=== PATIENT | female | born 1950 | race Caucasian/White ===

== ENCOUNTER 2021-09-26 14:54 | Inpatient (IN) | payer MEDICARE, OTHER ==
[~2021-09-26] VITALS: Ht 152.4 cm; Wt 59.5 kg
[2021-09-26 15:34] LABS: BASOPHILS % (AUTO) 0.8 % (0.0-2.0); EOSINOPHILS % (AUTO) 0.8 % (1.0-6.0); HEMATOCRIT 34.4 % (36-46); HEMOGLOBIN 11.5 g/dL (12.0-16.0); LYMPHOCYTES # (AUTO) 1.2 K/uL (1.0-4.8); LYMPHOCYTES % (AUTO) 19.5 % (22.0-44.0); MEAN CORPUSCULAR HEMOGLOBIN 28.8 pg (26.0-34.0); MEAN CORPUSCULAR HGB CONC 33.6 G/dL (31.0-37.0); MEAN CORPUSCULAR VOLUME 86 fL (80-100); MONOCYTES # (AUTO) 0.3 K/uL (0.1-1.0); MONOCYTES % (AUTO) 5.3 % (2.0-9.0); NEUTROPHILS # (AUTO) 4.6 K/uL (1.8-7.7); NEUTROPHILS % (AUTO) 73.6 % (40.0-70.0); PLATELET COUNT (AUTO) 239 K/uL (150-450); RED BLOOD CELL COUNT(AUTO) 4.02 MIL/uL (4.00-5.20); RED CELL DISTRIBUTION WIDTH 12.7 % (11.5-14.5)
[2021-09-26 15:42] LABS: CALCIUM, TOTAL 8.1 mg/dL (8.8-10.5); CREATININE 3.49 mg/dL (0.60-1.30); POTASSIUM 4.3 mmol/L (3.5-5.1)
[2021-09-26 15:47] LABS: ALBUMIN 1.9 g/dL (3.4-5.0); BILIRUBIN,TOTAL 0.3 mg/dL (0.1-1.0); PROTHROMBIN TIME 10.6 SEC (9.4-11.6); TOTAL PROTEIN, SERUM 5.5 g/dL (6.4-8.2)
[2021-09-26 15:53] LABS: APPEARANCE,URINE HAZY (CLEAR); BILIRUBIN,URINE NEGATIVE (NEGATIVE); GLUCOSE, URINE (UA) TRACE mg/dL (NEGATIVE); KETONES,URINE NEGATIVE (NEGATIVE); LEUKOCYTE ESTERASE ,URINE NEGATIVE (NEGATIVE); NITRATE,URINE NEGATIVE (NEGATIVE); OCCULT BLOOD,URINE TRACE (NEGATIVE); PH,URINE 6.5 (5.0-8.0); PROTEIN,URINE 300-600,SEE CONFIRM mg/dL (NEGATIVE); SPECIFIC GRAVITIY, URINE 1.013 (1.003-1.030); UROBILINOGEN,URINE <=1.0 mg/dL (<=1.0)
[2021-09-26 15:57] LABS: LACTIC ACID 1.1 mmol/L (0.4-2.0)
[2021-09-26 16:01] LABS: BACTERIA,URINE Few /HPF (None Seen); HYALINE CASTS, URINE 0-2 /LPF (None Seen); SQUAMOUS EPITHELIAL CELL,UR Moderate /LPF (None Seen); SULFOSALICYLIC ACID,URINE 3+ (Negative)
[2021-09-26 18:12] LABS: COVID AG,FIA SOURCE NASAL SWAB
[2021-09-26] MEDS ORDERED: FUROSEMIDE 40 MG/4 ML VIAL IVP ONE (18:45)
[2021-09-26] MEDS ORDERED: ASPIRIN 81 MG CHEWABLE TABLET PO ONE (18:45)
[2021-09-26] MEDS ORDERED: ONDANSETRON HCL 4 MG/2 ML VIAL IVP PRN (19:00)
[2021-09-26] MEDS ORDERED: ACETAMINOPHEN 325 MG TABLET PO PRN (19:00)
[2021-09-26 19:18] LABS: CREATININE,URINE RANDOM 78.7 mg/dL (30.0-125.0)
[2021-09-26] MEDS ORDERED: AmLODIPine BESYLATE 5 MG TABLET PO SCH (21:00)
[2021-09-26 21:30] VITALS: BP 174/71
[2021-09-26] MEDS ORDERED: SODIUM CHLORIDE 0.9% 250 ML IV ONE (23:15)
[2021-09-26] MEDS: HEPARIN SODIUM,PORCINE 5,000 UNITS/ML VIAL SQ SCH (23:50)
[2021-09-27] VITALS (7 sets, daily range): BP systolic 138–170; BP diastolic 63–79
[2021-09-27] MEDS ORDERED: PNEUMOCOCCAL VACCINE POLYVALENT 0.5 ML VIAL [PPSV23] IM. ONE (04:30)
[2021-09-27 05:56] LABS: GLUCOMETER DEV NAME(LOC) 5S.2B; GLUCOSE,POINT OF CARE 77 MG/DL (70-110)
[2021-09-27 08:07] LABS: BASOPHILS % (AUTO) 0.9 % (0.0-2.0); EOSINOPHILS % (AUTO) 2.8 % (1.0-6.0); HEMATOCRIT 29.8 % (36-46); HEMOGLOBIN 10.4 g/dL (12.0-16.0); LYMPHOCYTES # (AUTO) 1.6 K/uL (1.0-4.8); LYMPHOCYTES % (AUTO) 34.6 % (22.0-44.0); MEAN CORPUSCULAR HEMOGLOBIN 29.7 pg (26.0-34.0); MEAN CORPUSCULAR HGB CONC 34.8 G/dL (31.0-37.0); MEAN CORPUSCULAR VOLUME 85 fL (80-100); MONOCYTES # (AUTO) 0.4 K/uL (0.1-1.0); NEUTROPHILS # (AUTO) 2.4 K/uL (1.8-7.7); NEUTROPHILS % (AUTO) 53.7 % (40.0-70.0); PLATELET COUNT (AUTO) 184 K/uL (150-450); RED CELL DISTRIBUTION WIDTH 12.5 % (11.5-14.5)
[2021-09-27] MEDS: HEPARIN SODIUM,PORCINE 5,000 UNITS/ML VIAL SQ SCH ×3 (08:25→23:30)
[2021-09-27 08:32] LABS: CALCIUM, TOTAL 7.4 mg/dL (8.8-10.5); CREATININE 3.5 mg/dL (0.60-1.30); MAGNESIUM 1.7 mg/dL (1.80-2.40); POTASSIUM 3.6 mmol/L (3.5-5.1)
[2021-09-27 11:34] LABS: PHOSPHORUS 4.2 mg/dL (2.5-4.9)
[2021-09-27] MEDS ORDERED: AmLODIPine BESYLATE 5 MG TABLET PO SCH (11:45)
[2021-09-27] MEDS ORDERED: INSULIN LISPRO 100 UNITS/ML SQ PRN (11:45)
[2021-09-27] MEDS ORDERED: DEXTROSE 50%-WATER 25 GM/50 ML SYRINGE IVP PRN (11:45)
[2021-09-27] MEDS ORDERED: SODIUM CHLORIDE 0.9% 1,000 ML IV ONE (11:45)
[2021-09-27] MEDS ORDERED: GLUCAGON,HUMAN RECOMBINANT 1 MG VIAL IM PRN (11:45)
[2021-09-27 12:01] LABS: GLUCOMETER DEV NAME(LOC) 5S.2B; GLUCOSE,POINT OF CARE 114 MG/DL (70-110)
[2021-09-27] MEDS: INSULIN LISPRO 100 UNITS/ML SQ PRN (20:18)
[2021-09-27] MEDS ORDERED: ATORVASTATIN CALCIUM 20 MG TABLET PO SCH (21:00)
[2021-09-27 21:01] LABS: GLUCOMETER DEV NAME(LOC) 5N.3; GLUCOSE,POINT OF CARE 100 MG/DL (70-110)
[2021-09-28 04:30] VITALS: BP 156/70
[2021-09-28 05:01] LABS: GLUCOMETER DEV NAME(LOC) 5N.1C; GLUCOSE,POINT OF CARE 79 MG/DL (70-110)
[2021-09-28] MEDS: INSULIN LISPRO 100 UNITS/ML SQ PRN (05:52)
[2021-09-28 05:54] LABS: TPROTEIN TIMED,URINE 333 mg/dL
[2021-09-28 05:55] LABS: COLLECTION TIME,URINE 24 HR; TPROTEIN URINE, 24HRS COLL 4829 mg/24Hr (0-165)
[2021-09-28 05:56] LABS: GLUCOMETER DEV NAME(LOC) 5S.2B; GLUCOSE,POINT OF CARE 123 MG/DL (70-110)
[2021-09-28 07:46] VITALS: BP 164/77
[2021-09-28 08:02] LABS: CALCIUM, TOTAL 7.4 mg/dL (8.8-10.5); CREATININE 3.27 mg/dL (0.60-1.30); POTASSIUM 3.5 mmol/L (3.5-5.1)
[2021-09-28] MEDS: HEPARIN SODIUM,PORCINE 5,000 UNITS/ML VIAL SQ SCH (08:10)
[2021-09-28] MEDS ORDERED: AmLODIPine BESYLATE 10 MG TABLET PO SCH (09:00)
[2021-09-28 09:21] LABS: GLUCOMETER DEV NAME(LOC) 5S.1B; GLUCOSE,POINT OF CARE 108 MG/DL (70-110)
[2021-09-28 11:05] VITALS: BP 140/57
[2021-09-28] MEDS ORDERED: AMLO-258 PO (11:40)
[2021-09-28 13:51] LABS: GLUCOMETER DEV NAME(LOC) 5S.2B; GLUCOSE,POINT OF CARE 134 MG/DL (70-110)
== END 2021-09-28 15:25 | disposition home or self-care (01) | DRG 683 ==
LOC: EMS 15:04 → 5S 18:47
PROVIDERS: ADMIT Internal Medicine; ATTEND Internal Medicine
DX: N17.9 Acute kidney failure, unspecified (principal); I13.0 Hypertensive heart and chronic kidney disease with heart failure and stage 1 through stage 4 chronic kidney disease, or unspecified chronic kidney disease; E88.09 Other disorders of plasma-protein metabolism, not elsewhere classified; D64.9 Anemia, unspecified; E11.22 Type 2 diabetes mellitus with diabetic chronic kidney disease; E78.5 Hyperlipidemia, unspecified; I50.9 Heart failure, unspecified; R30.0 Dysuria; N18.4 Chronic kidney disease, stage 4 (severe); Z20.822 Contact with and (suspected) exposure to COVID-19; Z79.899 Other long term (current) drug therapy
CPT/HCPCS: 71045; 74176; 76705; 76770; 80048; 80053; 81001; 81002; 81050; 82570; 82962; 83605; 83735; 83880; 84100; 84156; 84300; 84484; 85025; 85610; 85730; 93005; 93306; 99285; J1644; J1940; J2405; J7030; J7050; 36415-L1; 36415-TC

== ENCOUNTER 2022-04-30 12:23 | Inpatient (IN) | payer MEDICARE, OTHER ==
[~2022-04-30] VITALS: Ht 154.9 cm; Wt 56.4 kg
[~2022-04-30 12:23] MED LIST: AMLO-258 PO; FURO40 PO; LOSA-381 PO
[2022-04-30 13:22] LABS: COVID AG,FIA SOURCE NASOPHARYNGEAL
[2022-04-30 13:25] LABS: BASOPHILS % (AUTO) 1.3 % (0.0-2.0); EOSINOPHILS % (AUTO) 5.6 % (1.0-6.0); HEMATOCRIT 31.4 % (36-46); HEMOGLOBIN 10.8 g/dL (12.0-16.0); LYMPHOCYTES # (AUTO) 1.5 K/uL (1.0-4.8); MEAN CORPUSCULAR HEMOGLOBIN 31.3 pg (26.0-34.0); MEAN CORPUSCULAR HGB CONC 34.4 G/dL (31.0-37.0); MEAN CORPUSCULAR VOLUME 91 fL (80-100); MONOCYTES # (AUTO) 0.3 K/uL (0.1-1.0); MONOCYTES % (AUTO) 5.1 % (2.0-9.0); NEUTROPHILS # (AUTO) 4.4 K/uL (1.8-7.7); PLATELET COUNT (AUTO) 213 K/uL (150-450); RED BLOOD CELL COUNT(AUTO) 3.45 MIL/uL (4.00-5.20); RED CELL DISTRIBUTION WIDTH 13.7 % (11.5-14.5)
[2022-04-30 13:39] LABS: LIPASE 128 U/L (73-393)
[2022-04-30 13:50] LABS: LACTIC ACID 2.2 mmol/L (0.4-2.0)
[2022-04-30 13:52] LABS: B-TYPE NATRIURETIC PEPTIDE 174 pg/mL (0-100)
[2022-04-30] MEDS ORDERED: LABE100T51 PO (14:51)
[2022-04-30] MEDS ORDERED: FURO80TA87 PO (14:52)
[2022-04-30] MEDS ORDERED: AMLO2.5T29 PO (14:53)
[2022-04-30] MEDS ORDERED: NIFE90TA65 PO (14:54)
[2022-04-30] MEDS ORDERED: LOSA-382 PO (14:55)
[2022-04-30] MEDS ORDERED: ATOR40TA71 PO (15:22)
[2022-04-30] MEDS ORDERED: INSU100I40 SQ (15:22)
[2022-04-30] MEDS ORDERED: AMLO5TAB66 PO (15:22)
[2022-04-30] MEDS ORDERED: LEVOFLOXACIN 500 MG/D5% WATER 100 ML IV ONE (15:30)
[2022-04-30] MEDS ORDERED: PIPERACILLIN/TAZO 3.375 GM/D5W 50 ML IV ONE (15:30)
[2022-04-30 15:44] LABS: CALCIUM, TOTAL 8.8 mg/dL (8.8-10.5); CREATININE 5.5 mg/dL (0.60-1.30); POTASSIUM 4.8 mmol/L (3.5-5.1)
[2022-04-30] MEDS: ASPIRIN 81 MG DR TABLET PO SCH (17:24)
[2022-04-30] MEDS ORDERED: DEXTROSE 50%-WATER 25 GM/50 ML SYRINGE IVP PRN (20:00)
[2022-04-30] MEDS ORDERED: MORPHINE SULFATE 2 MG/ML SYRINGE IVP PRN (20:15)
[2022-04-30] MEDS ORDERED: HYDROCODONE/ACETAMINOPHEN 5-325 MG TABLET PO PRN (20:15)
[2022-04-30] MEDS ORDERED: MAGNESIUM HYDROXIDE SUSPENSION 30 ML UDCUP PO PRN (20:15)
[2022-04-30] MEDS ORDERED: ONDANSETRON HCL 4 MG/2 ML VIAL IVP PRN (20:15)
[2022-04-30] MEDS ORDERED: ACETAMINOPHEN 325 MG TABLET PO PRN (20:15)
[2022-04-30] MEDS ORDERED: BISACODYL 10 MG RECTAL RECTAL SUPPOSITORY PR PRN (20:15)
[2022-04-30] MEDS ORDERED: *CLINICAL-LEVOFLOXACIN IVPB DOSING CLINICAL ONE (20:30)
[2022-04-30 21:00] VITALS: BP 182/73
[2022-04-30] MEDS: DOCUSATE SODIUM 100 MG CAPSULE PO SCH (21:39)
[2022-04-30] MEDS: HydrALAZINE HCL 20 MG/ML VIAL IVP PRN (21:39)
[2022-04-30] MEDS: INSULIN LISPRO 100 UNITS/ML SQ PRN (21:57)
[2022-04-30] MEDS: ZOLPIDEM TARTRATE 5 MG TABLET PO PRN (22:32)
[2022-05-01] VITALS (15 sets, daily range): BP systolic 133–221; BP diastolic 60–80
[2022-05-01] MEDS: HEPARIN SODIUM,PORCINE 5,000 UNITS/ML VIAL SQ SCH ×4 (00:54→18:05)
[2022-05-01 05:11] LABS: GLUCOMETER DEV NAME(LOC) 5S.2B; GLUCOSE,POINT OF CARE 108 MG/DL (70-110)
[2022-05-01 05:58] LABS: BASOPHILS % (AUTO) 0.5 % (0.0-2.0); EOSINOPHILS % (AUTO) 9.5 % (1.0-6.0); HEMOGLOBIN 10.6 g/dL (12.0-16.0); LYMPHOCYTES % (AUTO) 14.9 % (22.0-44.0); MEAN CORPUSCULAR HEMOGLOBIN 31.7 pg (26.0-34.0); MEAN CORPUSCULAR HGB CONC 35.4 G/dL (31.0-37.0); MEAN CORPUSCULAR VOLUME 90 fL (80-100); MONOCYTES # (AUTO) 0.3 K/uL (0.1-1.0); MONOCYTES % (AUTO) 4.5 % (2.0-9.0); NEUTROPHILS # (AUTO) 4.9 K/uL (1.8-7.7); NEUTROPHILS % (AUTO) 70.6 % (40.0-70.0); PLATELET COUNT (AUTO) 204 K/uL (150-450); RED BLOOD CELL COUNT(AUTO) 3.34 MIL/uL (4.00-5.20); RED CELL DISTRIBUTION WIDTH 13.8 % (11.5-14.5)
[2022-05-01 06:08] LABS: CALCIUM, TOTAL 8.6 mg/dL (8.8-10.5); CREATININE 6.14 mg/dL (0.60-1.30); POTASSIUM 5.5 mmol/L (3.5-5.1)
[2022-05-01 06:27] LABS: GLUCOMETER DEV NAME(LOC) 5S.2B; GLUCOSE,POINT OF CARE 90 MG/DL (70-110)
[2022-05-01] MEDS ORDERED: SODIUM POLYSTYRENE SULFONATE 15 GM/60 ML SUSPENSION BOTTLE PO ONE (06:45)
[2022-05-01] MEDS: LOSARTAN POTASSIUM 50 MG TABLET PO SCH (08:19)
[2022-05-01] MEDS: PANTOPRAZOLE SODIUM 40 MG DR TABLET PO SCH (08:19)
[2022-05-01] MEDS: ASPIRIN 81 MG DR TABLET PO SCH (08:19)
[2022-05-01] MEDS: ATORVASTATIN CALCIUM 20 MG TABLET PO SCH (08:19)
[2022-05-01] MEDS: DOCUSATE SODIUM 100 MG CAPSULE PO SCH ×2 (08:20→20:39)
[2022-05-01 12:46] LABS: GLUCOMETER DEV NAME(LOC) 5S.2B; GLUCOSE,POINT OF CARE 121 MG/DL (70-110)
[2022-05-01] MEDS ORDERED: FOLIC ACID/VIT B COMPLEX AND C TABLET PO SCH (13:00)
[2022-05-01] MEDS: FOLIC ACID/VIT B COMPLEX AND C TABLET PO SCH (13:00)
[2022-05-01] MEDS ORDERED: AmLODIPine BESYLATE 5 MG TABLET PO SCH (20:30)
[2022-05-01] MEDS: INSULIN LISPRO 100 UNITS/ML SQ PRN (20:38)
[2022-05-01] MEDS: ZOLPIDEM TARTRATE 5 MG TABLET PO PRN (20:39)
[2022-05-01] MEDS ORDERED: HEPARIN SODIUM,PORCINE 1,000 UNITS/ML VIAL IVP ONE (23:01)
[2022-05-02 00:36] VITALS: BP 185/61
[2022-05-02] MEDS: HydrALAZINE HCL 20 MG/ML VIAL IVP PRN (01:08)
[2022-05-02 03:01] LABS: GLUCOMETER DEV NAME(LOC) 5S.2B; GLUCOSE,POINT OF CARE 181 MG/DL (70-110)
[2022-05-02 04:06] VITALS: BP 124/50
[2022-05-02 06:22] LABS: GLUCOMETER DEV NAME(LOC) 5S.1B; GLUCOSE,POINT OF CARE 91 MG/DL (70-110)
[2022-05-02 06:41] LABS: BASOPHILS % (AUTO) 0.8 % (0.0-2.0); HEMATOCRIT 30.8 % (36-46); HEMOGLOBIN 10.7 g/dL (12.0-16.0); LYMPHOCYTES % (AUTO) 31.9 % (22.0-44.0); MEAN CORPUSCULAR HEMOGLOBIN 31.5 pg (26.0-34.0); MEAN CORPUSCULAR HGB CONC 34.6 G/dL (31.0-37.0); MEAN CORPUSCULAR VOLUME 91 fL (80-100); MONOCYTES # (AUTO) 0.5 K/uL (0.1-1.0); MONOCYTES % (AUTO) 7.6 % (2.0-9.0); NEUTROPHILS % (AUTO) 47.7 % (40.0-70.0); PLATELET COUNT (AUTO) 210 K/uL (150-450); RED BLOOD CELL COUNT(AUTO) 3.38 MIL/uL (4.00-5.20)
[2022-05-02 06:57] LABS: CALCIUM, TOTAL 8.7 mg/dL (8.8-10.5); CREATININE 4.18 mg/dL (0.60-1.30); POTASSIUM 3.7 mmol/L (3.5-5.1)
[2022-05-02 07:51] VITALS: BP 155/64
[2022-05-02] MEDS: HEPARIN SODIUM,PORCINE 5,000 UNITS/ML VIAL SQ SCH (08:45)
[2022-05-02] MEDS: LOSARTAN POTASSIUM 50 MG TABLET PO SCH (08:46)
[2022-05-02] MEDS: ATORVASTATIN CALCIUM 20 MG TABLET PO SCH (08:46)
[2022-05-02] MEDS: PANTOPRAZOLE SODIUM 40 MG DR TABLET PO SCH (08:46)
[2022-05-02] MEDS: FOLIC ACID/VIT B COMPLEX AND C TABLET PO SCH (08:46)
[2022-05-02] MEDS: DOCUSATE SODIUM 100 MG CAPSULE PO SCH (08:46)
[2022-05-02] MEDS: ASPIRIN 81 MG DR TABLET PO SCH (08:46)
[2022-05-02] MEDS ORDERED: NIFEdipine 90 MG ER TABLET PO SCH (09:00)
[2022-05-02] MEDS ORDERED: LABETALOL HCL 100 MG TABLET PO SCH (09:00)
[2022-05-02] MEDS ORDERED: LEVOFLOXACIN 500 MG/D5% WATER 100 ML IV SCH (09:00)
[2022-05-02] MEDS ORDERED: ASPI-1444 PO (12:52)
[2022-05-02] MEDS ORDERED: LABE100T51 PO (12:52)
[2022-05-02] MEDS ORDERED: ATOR20TA65 PO (12:52)
[2022-05-02] MEDS ORDERED: FOLI0.8T2 PO (12:52)
[2022-05-02] MEDS ORDERED: NIFE90TA91 PO (12:52)
[2022-05-02] MEDS ORDERED: LOSA-382 PO (12:52)
[2022-05-02] MEDS ORDERED: AMOX1TAB15 PO (12:55)
== END 2022-05-02 15:50 | disposition home or self-care (01) | DRG 871 ==
LOC: EMS 12:27 → 5S 18:49
PROVIDERS: ADMIT Internal Medicine; ATTEND Internal Medicine
PROC: 5A1D70Z Performance of Urinary Filtration, Intermittent, Less than 6 Hours Per Day (ICD-10-PCS; principal; 2022-05-01)
DX: A41.9 Sepsis, unspecified organism (principal); G93.41 Metabolic encephalopathy; J18.9 Pneumonia, unspecified organism; N18.6 End stage renal disease; E87.20 Acidosis, unspecified; I13.2 Hypertensive heart and chronic kidney disease with heart failure and with stage 5 chronic kidney disease, or end stage renal disease; E11.22 Type 2 diabetes mellitus with diabetic chronic kidney disease; E78.5 Hyperlipidemia, unspecified; E87.5 Hyperkalemia; Z20.822 Contact with and (suspected) exposure to COVID-19; R68.0 Hypothermia, not associated with low environmental temperature; I50.9 Heart failure, unspecified; I95.3 Hypotension of hemodialysis; Z79.4 Long term (current) use of insulin; Z79.82 Long term (current) use of aspirin; Z79.899 Other long term (current) drug therapy; Z86.73 Personal history of transient ischemic attack (TIA), and cerebral infarction without residual deficits; Z99.2 Dependence on renal dialysis
CPT/HCPCS: 71045; 80048; 82962; 83605; 83690; 83880; 84443; 84484; 85025; 87040; 87081; 87340; 90935; 93005; 93306; 97162; 99291; G0378; J0360; J1644; J1956; 36415-L1; 36415-TC

== ENCOUNTER 2024-12-27 13:22 | Inpatient (IN) | payer MEDICARE, OTHER ==
[~2024-12-27] VITALS: Ht 165.1 cm; Wt 61.6 kg
[~2024-12-27 13:22] MED LIST changes: -AMLO-258 PO; +ASPI-1444 PO; +ATOR20TA65 PO; +FOLI0.8T54 PO; -FURO40 PO; +INSU100I56 SQ; -LOSA-381 PO; +LOSA-382 PO; +NIFE90TA91 PO
[2024-12-27 13:55] LABS: PLATELET COUNT (AUTO) 171 K/uL (150-450); RED BLOOD CELL COUNT(AUTO) 4.35 MIL/uL (4.00-5.20); RED CELL DISTRIBUTION WIDTH 22.7 % (11.5-14.5); WHITE BLOOD COUNT (AUTO) 8.4 K/uL (4.5-11.0)
[2024-12-27] MEDS ORDERED: 0.9% SODIUM CHLORIDE 10 ML SYRINGE IVP PRN (14:00)
[2024-12-27 14:03] LABS: CALCIUM, TOTAL 8.7 mg/dL (8.8-10.5); CREATININE 5.36 mg/dL (0.60-1.30); GLOMERULAR FILTR. RATE CALC 8 mL/min (>60); GLUCOSE,RANDOM 99 mg/dL (70-110); SODIUM SERUM 140 mmol/L (136-145); UREA NITROGEN, BLOOD 28 mg/dL (7-18)
[2024-12-27] MEDS: CefTRIAXone 1 GM/DEXTROSE 50 ML IV ONE (14:05)
[2024-12-27] MEDS: SODIUM CHLORIDE 0.9% 1,200 ML IV ONE (14:05)
[2024-12-27] MEDS: ACETAMINOPHEN 500 MG TABLET PO ONE (14:05)
[2024-12-27 14:06] LABS: CREATINE KINASE, TOTAL ONLY 53 U/L (26-192)
[2024-12-27 14:09] LABS: TROPONIN I-HIGH SENSITIVITY 50 ng/L (<51)
[2024-12-27 14:18] LABS: RBC MORPHOLOGY COMMENT ABNORMAL RBC MORPH
[2024-12-27 14:22] LABS: APPEARANCE,URINE CLEAR (CLEAR); GLUCOSE, URINE (UA) TRACE mg/dL (NEGATIVE); LEUKOCYTE ESTERASE ,URINE NEGATIVE (NEGATIVE); NITRATE,URINE NEGATIVE (NEGATIVE); OCCULT BLOOD,URINE NEGATIVE (NEGATIVE); SPECIFIC GRAVITIY, URINE 1.019 (1.003-1.030)
[2024-12-27 14:28] LABS: ASPARTATE AMINOTRANSFERASE 22 U/L (15-37); TOTAL PROTEIN, SERUM 7.0 g/dL (6.4-8.2)
[2024-12-27 14:32] LABS: LACTIC ACID 0.5 mmol/L (0.4-2.0)
[2024-12-27 14:42] LABS: SULFOSALICYLIC ACID,URINE 3+ (Negative)
[2024-12-27 14:43] LABS: SQUAMOUS EPITHELIAL CELL,UR Rare /LPF (None Seen)
[2024-12-27] MEDS ORDERED: ONDANSETRON HCL 4 MG/2 ML VIAL IVP PRN (15:00)
[2024-12-27] MEDS ORDERED: DEXTROSE 50%-WATER 25 GM/50 ML SYRINGE IVP PRN (15:00)
[2024-12-27] MEDS ORDERED: INSULIN LISPRO 100 UNITS/ML SQ PRN (15:00)
[2024-12-27] MEDS ORDERED: VANCOMYCIN 1GM/WATER(PEG/NADA) 200 ML IV PRN (15:15)
[2024-12-27] MEDS ORDERED: VANCOMYCIN 1GM/WATER(PEG/NADA) 200 ML IV ONE (16:00)
[2024-12-27] MEDS: HEPARIN SODIUM,PORCINE 5,000 UNITS/ML VIAL SQ SCH (16:00)
[2024-12-27 17:15] VITALS: BP 150/55; PULSE 50; RESP 18; TEMP 97.5; O2SAT 96
[2024-12-27] MEDS: VANCOMYCIN 1GM/WATER(PEG/NADA) 200 ML IV ONE (18:39)
[2024-12-27 18:59] LABS: TROPONIN I-HIGH SENSITIVITY 50 ng/L (<51)
[2024-12-27] MEDS: SODIUM ZIRCONIUM CYCLOSILICATE 10 GM POWDER PACKET PO ONE (19:00)
[2024-12-27] MEDS: FOLIC ACID/VIT B COMPLEX AND C TABLET PO SCH (19:00)
[2024-12-27 20:00] VITALS: BP 174/57; PULSE 57; RESP 18; TEMP 98.2; O2SAT 96
[2024-12-27] MEDS: DOCUSATE SODIUM 100 MG CAPSULE PO SCH (21:00)
[2024-12-28] VITALS (16 sets, daily range): BP systolic 142–178; BP diastolic 47–76; PULSE 51–62; RESP 16–19; TEMP 97.2–99.7; O2SAT 96–100
[2024-12-28 06:49] LABS: CALCIUM, TOTAL 8.0 mg/dL (8.8-10.5); CREATININE 6.93 mg/dL (0.60-1.30); GLOMERULAR FILTR. RATE CALC 6.0 mL/min (>60); GLUCOSE,RANDOM 66.0 mg/dL (70-110); SODIUM SERUM 138.0 mmol/L (136-145); UREA NITROGEN, BLOOD 36.0 mg/dL (7-18)
[2024-12-28 07:04] LABS: PHOSPHORUS 3.9 mg/dL (2.5-4.9)
[2024-12-28] MEDS: ASPIRIN 81 MG CHEWABLE TABLET PO SCH (08:54)
[2024-12-28] MEDS: FAMOTIDINE 20 MG TABLET PO SCH (09:00)
[2024-12-28] MEDS: ATORVASTATIN CALCIUM 20 MG TABLET PO SCH (09:00)
[2024-12-28] MEDS ORDERED: SODIUM CHLORIDE 0.9% 1,000 ML ONE (11:04)
[2024-12-28 12:21] LABS: GLUCOMETER DEV NAME(LOC) 5S.2D; GLUCOSE,POINT OF CARE 91 MG/DL (70-110)
[2024-12-28] MEDS: CefTRIAXone 1 GM/DEXTROSE 50 ML IV SCH (13:00)
[2024-12-28 17:06] LABS: GLUCOMETER DEV NAME(LOC) 5N.1D; GLUCOSE,POINT OF CARE 94 MG/DL (70-110)
[2024-12-28] MEDS: ACETAMINOPHEN 325 MG TABLET PO PRN (22:47)
[2024-12-29] VITALS (7 sets, daily range): BP systolic 140–181; BP diastolic 47–67; PULSE 56–66; RESP 18–19; TEMP 97.5–98.8; O2SAT 95–100
[2024-12-29 05:26] LABS: GLUCOMETER DEV NAME(LOC) 5S.2D; GLUCOSE,POINT OF CARE 76 MG/DL (70-110)
[2024-12-29 05:46] LABS: GLUCOMETER DEV NAME(LOC) 5S.1D; GLUCOSE,POINT OF CARE 90 MG/DL (70-110)
[2024-12-29 06:53] LABS: PLATELET COUNT (AUTO) 173 K/uL (150-450); RED BLOOD CELL COUNT(AUTO) 4.56 MIL/uL (4.00-5.20); RED CELL DISTRIBUTION WIDTH 21.7 % (11.5-14.5); WHITE BLOOD COUNT (AUTO) 4.6 K/uL (4.5-11.0)
[2024-12-29 07:03] LABS: CALCIUM, TOTAL 8.1 mg/dL (8.8-10.5); CREATININE 4.37 mg/dL (0.60-1.30); GLOMERULAR FILTR. RATE CALC 10.0 mL/min (>60); GLUCOSE,RANDOM 73.0 mg/dL (70-110); SODIUM SERUM 134.0 mmol/L (136-145); UREA NITROGEN, BLOOD 15.0 mg/dL (7-18)
[2024-12-29 08:59] LABS: RBC MORPHOLOGY COMMENT ABNORMAL RBC MORPH
[2024-12-29] MEDS: LOSARTAN POTASSIUM 25 MG TABLET PO SCH (11:20)
[2024-12-29 12:36] LABS: GLUCOMETER DEV NAME(LOC) 5S.2D; GLUCOSE,POINT OF CARE 84 MG/DL (70-110)
[2024-12-29] MEDS: VANCOMYCIN 750 MG/WATER(PEG) 150 ML IV ONE (15:30)
[2024-12-29 20:05] LABS: GLUCOMETER DEV NAME(LOC) 5S.2D; GLUCOSE,POINT OF CARE 137 MG/DL (70-110)
[2024-12-30 04:00] VITALS: BP 179/60; PULSE 62; RESP 18; TEMP 98.5; O2SAT 96
[2024-12-30 05:12] VITALS: BP 150/56; PULSE 58; RESP 18; TEMP 98.4; O2SAT 98
[2024-12-30 05:16] LABS: GLUCOMETER DEV NAME(LOC) 5S.2D; GLUCOSE,POINT OF CARE 108 MG/DL (70-110)
[2024-12-30 06:00] LABS: PLATELET COUNT (AUTO) 181 K/uL (150-450); RED BLOOD CELL COUNT(AUTO) 4.53 MIL/uL (4.00-5.20); RED CELL DISTRIBUTION WIDTH 21.9 % (11.5-14.5); WHITE BLOOD COUNT (AUTO) 5.9 K/uL (4.5-11.0)
[2024-12-30 06:10] LABS: RBC MORPHOLOGY COMMENT ABNORMAL RBC MORPH
[2024-12-30 06:15] LABS: CALCIUM, TOTAL 7.9 mg/dL (8.8-10.5); CREATININE 6.01 mg/dL (0.60-1.30); GLOMERULAR FILTR. RATE CALC 7.0 mL/min (>60); GLUCOSE,RANDOM 87.0 mg/dL (70-110); SODIUM SERUM 135.0 mmol/L (136-145); UREA NITROGEN, BLOOD 26.0 mg/dL (7-18)
[2024-12-30 08:00] VITALS: BP 143/49; PULSE 68; RESP 16; TEMP 98.6; O2SAT 96
[2024-12-30] MEDS ORDERED: LEVO250T75 PO (10:12)
[2024-12-30 11:45] VITALS: BP 147/53; PULSE 70; RESP 18; TEMP 98; O2SAT 96
[2024-12-30 11:50] LABS: GLUCOMETER DEV NAME(LOC) 5S.1D; GLUCOSE,POINT OF CARE 100 MG/DL (70-110)
== END 2024-12-30 11:55 | disposition home or self-care (01) | DRG 871 ==
LOC: EMS 13:45 → EDH 14:51 → 5S 16:54
PROVIDERS: ADMIT Internal Medicine; ATTEND Internal Medicine
PROC: 5A1D70Z Performance of Urinary Filtration, Intermittent, Less than 6 Hours Per Day (ICD-10-PCS; principal; 2024-12-28)
DX: A41.9 Sepsis, unspecified organism (principal); G92.9 Unspecified toxic encephalopathy; J15.69 Pneumonia due to other Gram-negative bacteria; N18.6 End stage renal disease; I16.1 Hypertensive emergency; I13.2 Hypertensive heart and chronic kidney disease with heart failure and with stage 5 chronic kidney disease, or end stage renal disease; E44.0 Moderate protein-calorie malnutrition; D63.1 Anemia in chronic kidney disease; E11.22 Type 2 diabetes mellitus with diabetic chronic kidney disease; E87.5 Hyperkalemia; I50.9 Heart failure, unspecified; Z86.73 Personal history of transient ischemic attack (TIA), and cerebral infarction without residual deficits; I25.2 Old myocardial infarction; Z79.4 Long term (current) use of insulin; Z83.3 Family history of diabetes mellitus; Z99.2 Dependence on renal dialysis; Z68.22 Body mass index [BMI] 22.0-22.9, adult
CPT/HCPCS: 51702; 71045; 80048; 80076; 80202; 81001; 81002; 82550; 82962; 83605; 83690; 83735; 83880; 84100; 84145; 84484; 85025; 85610; 85730; 87040; 87340; 90935; 93005; 96365; 99291; G0378; J0360; J0696; J1644; J7030; 36415-L1; 36415-TC